=== PATIENT | male | born 1940 | race Caucasian/White ===

== ENCOUNTER 2019-09-11 17:35 | Emergency (ER) | payer MEDICARE, OTHER ==
[~2019-09-11] VITALS: Ht 182.9 cm; Wt 74.0 kg
[2019-09-11 20:23] LABS: CLARITY URINE CLEAR (CLEAR); COLOR URINE YELLOW (YELLOW); KETONES URINE TRACE (NEGATIVE); LEUKOCYTE ESTERASE URINE NEGATIVE (NEGATIVE); NITRITE URINE NEGATIVE (NEGATIVE); OCCULT BLOOD URINE NEGATIVE (NEGATIVE); PROTEIN URINE NEGATIVE (NEGATIVE); SPECIFIC GRAVITY URINE 1.017 (1.005-1.030)
[2019-09-11 21:07] VITALS: BP 133/71
== END 2019-09-11 21:08 | disposition home or self-care (01) ==
LOC: ER 17:50
DX: R33.9 Retention of urine, unspecified (principal); I10 Essential (primary) hypertension; N40.0 Benign prostatic hyperplasia without lower urinary tract symptoms
CPT/HCPCS: 51702; 81003; 99283

== ENCOUNTER 2020-09-21 05:57 | Inpatient (IN) | payer MEDICARE, OTHER ==
[~2020-09-21] VITALS: Ht 182.9 cm; Wt 74.4 kg
[2020-09-21] MEDS ORDERED: ACETAMINOPHEN 325MG TABLET PO ONE (07:30)
[2020-09-21 07:55] LABS: BASOPHILS % 0.6 % (0.0-2.0); EOSINOPHILS % 5.4 % (0.0-5.0); HEMATOCRIT. 36.7 % (42.0-52.0); HEMOGLOBIN. 12.3 g/dL (14.0-18.0); LYMPHOCYTES % 26.4 % (20.0-50.0); MEAN CORPUSCULAR HEMOGLOBIN 30.1 pg (28.0-32.0); MEAN CORPUSCULAR VOLUME 89.7 fL (80.0-94.0); MEAN PLATELET VOLUME 8.3 fl (7.4-10.4); MONOCYTES % 4.4 % (2.0-8.0); NEUTROPHILS % 63.2 % (40.0-76.0); PLATELET 294 x1000/uL (130-400); RED BLOOD CELL COUNT 4.09 mill/uL (4.7-6.1); RED CELL DISTRIBUTION WIDTH 14.1 % (11.6-14.6)
[2020-09-21 08:03] LABS: CHLORIDE 105 mEq/L (98-107)
[2020-09-21] MEDS ORDERED: IPRATROPIUM/ALBUTEROL 0.5-3(2.5)MG/3ML NEB HHN PRN (11:00)
[2020-09-21] MEDS ORDERED: ACETAMINOPHEN 325MG TABLET PO PRN (11:00)
[2020-09-21] MEDS ORDERED: CLONIDINE 0.1MG TABLET PO PRN (11:00)
[2020-09-21] MEDS ORDERED: HYDROCODONE/ACETAMINOPHEN 5/325MG TABLET PO PRN (11:00)
[2020-09-21] MEDS: SODIUM CHLORIDE 0.9% 1,000 ML IV SCH (15:46)
[2020-09-21 16:30] LABS: PROTHROMBIN TIME 11.1 sec (9.6-11.0)
[2020-09-21] MEDS: MORPHINE SULFATE 2 MG/ML CPJ (NOT FOR IM USE) IV PRN (20:16)
[2020-09-21 20:30] VITALS: BP 157/77
[2020-09-21] MEDS ORDERED: MIRTAZAPINE 30MG TABLET PO SCH (21:00)
[2020-09-21] MEDS ORDERED: MIRT-91 MT (22:35)
[2020-09-21 22:36] VITALS: BP 157/77
[2020-09-22] VITALS: BP 115/50
[2020-09-22] MEDS: SODIUM CHLORIDE 0.9% 1,000 ML IV SCH ×2 (00:34→15:36)
[2020-09-22] MEDS: MIRTAZAPINE 15MG TABLET PO SCH ×2 (00:41→20:26)
[2020-09-22 04:00] VITALS: BP 141/66
[2020-09-22 05:10] LABS: CHLORIDE 106 mEq/L (98-107)
[2020-09-22 05:14] LABS: PHOSPHORUS 2.5 mg/dL (2.5-4.9)
[2020-09-22 05:16] LABS: LDL CHOLESTEROL 77 mg/dL (5-100)
[2020-09-22 05:17] LABS: HDL CHOLESTEROL 52 mg/dL (40-59); TOTAL IRON BINDING CAPACITY 237 ug/dL (250-450)
[2020-09-22 05:41] LABS: FERRITIN 115 ng/mL (22-322)
[2020-09-22 06:08] LABS: FOLIC ACID (FOLATE) SERUM >20 ng/mL ng/mL (>5.38)
[2020-09-22 06:19] LABS: BASOPHILS % 0.1 % (0.0-2.0); HEMATOCRIT. 28.9 % (42.0-52.0); HEMOGLOBIN. 9.7 g/dL (14.0-18.0); LYMPHOCYTES % 8.5 % (20.0-50.0); MEAN CORPUSCULAR VOLUME 89.1 fL (80.0-94.0); MEAN PLATELET VOLUME 8.3 fl (7.4-10.4); NEUTROPHILS % 85.4 % (40.0-76.0); PLATELET 286 x1000/uL (130-400); RED BLOOD CELL COUNT 3.24 mill/uL (4.7-6.1); RED CELL DISTRIBUTION WIDTH 14.2 % (11.6-14.6); VITAMIN B12 SERUM 881 pg/mL (211-911)
[2020-09-22 08:00] VITALS: BP 144/57
[2020-09-22] MEDS: ONDANSETRON HCL 4MG/2ML INJ IV PRN (10:08)
[2020-09-22] MEDS ORDERED: *PATIENT'S OWN MEDICATION STORAGE XX SCH (11:30)
[2020-09-22] MEDS ORDERED: LISI40TA13 MT (11:34)
[2020-09-22] MEDS ORDERED: TAMS-11 PO (11:34)
[2020-09-22] MEDS ORDERED: OMEP20TA2 PO (11:34)
[2020-09-22 12:00] VITALS: BP 138/65
[2020-09-22] MEDS: OMEPRAZOLE 20MG CAPSULE EXTENDED RELEASE PO SCH (13:51)
[2020-09-22] MEDS: TAMSULOSIN HCL 0.4MG SR CAPSULE PO SCH (13:51)
[2020-09-22] MEDS: LISINOPRIL 40MG TABLET PO SCH (15:40)
[2020-09-22] MEDS: LORAZEPAM 0.5MG TABLET PO PRN (15:40)
[2020-09-22] MEDS: MORPHINE SULFATE 2 MG/ML CPJ (NOT FOR IM USE) IV PRN (15:41)
[2020-09-22 16:00] VITALS: BP 142/82
[2020-09-22 20:00] VITALS: BP 126/67
[2020-09-23] VITALS: BP 139/52
[2020-09-23 04:00] VITALS: BP 136/58
[2020-09-23] MEDS: SODIUM CHLORIDE 0.9% 1,000 ML IV SCH ×2 (06:29→20:28)
[2020-09-23] MEDS: OMEPRAZOLE 20MG CAPSULE EXTENDED RELEASE PO SCH (06:29)
[2020-09-23 07:19] LABS: BASOPHILS % 0.1 % (0.0-2.0); EOSINOPHILS % 0.2 % (0.0-5.0); HEMOGLOBIN. 8.8 g/dL (14.0-18.0); LYMPHOCYTES % 12.5 % (20.0-50.0); MEAN CORPUSCULAR HEMOGLOBIN 30.4 pg (28.0-32.0); MEAN CORPUSCULAR VOLUME 90.1 fL (80.0-94.0); MEAN PLATELET VOLUME 8.1 fl (7.4-10.4); MONOCYTES % 9.2 % (2.0-8.0); PLATELET 205 x1000/uL (130-400); RED BLOOD CELL COUNT 2.89 mill/uL (4.7-6.1)
[2020-09-23 08:00] VITALS: BP 136/100
[2020-09-23 08:31] LABS: CHLORIDE 106 mEq/L (98-107)
[2020-09-23] MEDS: LISINOPRIL 40MG TABLET PO SCH (09:56)
[2020-09-23] MEDS: TAMSULOSIN HCL 0.4MG SR CAPSULE PO SCH (09:56)
[2020-09-23] MEDS: MORPHINE SULFATE 2 MG/ML CPJ (NOT FOR IM USE) IV PRN ×2 (09:56→18:52)
[2020-09-23 20:00] VITALS: BP 136/62
[2020-09-23] MEDS: MIRTAZAPINE 15MG TABLET PO SCH (20:28)
[2020-09-23] MEDS: ZOLPIDEM TARTRATE 5MG TABLET PO PRN (20:28)
[2020-09-23] MEDS: FAMOTIDINE 20MG TABLET PO SCH (20:28)
[2020-09-24] MEDS: LORAZEPAM 0.5MG TABLET PO PRN (00:42)
[2020-09-24] MEDS: MORPHINE SULFATE 2 MG/ML CPJ (NOT FOR IM USE) IV PRN ×3 (00:42→17:54)
[2020-09-24] MEDS: FAMOTIDINE 20MG TABLET PO SCH ×2 (06:06→20:23)
[2020-09-24 07:07] LABS: BASOPHILS % 0.5 % (0.0-2.0); EOSINOPHILS % 1.8 % (0.0-5.0); HEMATOCRIT. 23.4 % (42.0-52.0); HEMOGLOBIN. 8.1 g/dL (14.0-18.0); LYMPHOCYTES % 15.7 % (20.0-50.0); MEAN CORPUSCULAR HEMOGLOBIN 30.8 pg (28.0-32.0); MONOCYTES % 8.7 % (2.0-8.0); NEUTROPHILS % 73.3 % (40.0-76.0); PLATELET 190 x1000/uL (130-400); RED BLOOD CELL COUNT 2.63 mill/uL (4.7-6.1); RED CELL DISTRIBUTION WIDTH 13.7 % (11.6-14.6)
[2020-09-24 07:25] LABS: CHLORIDE 104 mEq/L (98-107)
[2020-09-24] MEDS: ONDANSETRON HCL 4MG/2ML INJ IV PRN (09:21)
[2020-09-24] MEDS: LISINOPRIL 40MG TABLET PO SCH (09:22)
[2020-09-24] MEDS: TAMSULOSIN HCL 0.4MG SR CAPSULE PO SCH (09:23)
[2020-09-24] MEDS: SODIUM CHLORIDE 0.9% 1,000 ML IV SCH (09:31)
[2020-09-24 16:00] VITALS: BP 138/68
[2020-09-24 20:00] VITALS: BP 134/66
[2020-09-24] MEDS: ZOLPIDEM TARTRATE 5MG TABLET PO PRN (20:23)
[2020-09-24] MEDS: MIRTAZAPINE 15MG TABLET PO SCH (20:23)
[2020-09-25] MEDS: SODIUM CHLORIDE 0.9% 1,000 ML IV SCH ×3 (00:48→21:28)
[2020-09-25 04:00] VITALS: BP 126/55
[2020-09-25] MEDS: MORPHINE SULFATE 2 MG/ML CPJ (NOT FOR IM USE) IV PRN (05:47)
[2020-09-25] MEDS: FAMOTIDINE 20MG TABLET PO SCH ×2 (06:15→21:08)
[2020-09-25] MEDS ORDERED: LIDOCAINE 1%/EPI 1:200,000 10 ML VIAL IJ ONE (06:54)
[2020-09-25] MEDS ORDERED: BACITRACIN 50,000 UNITS/VIAL ONE ×2 (06:54→09:12)
[2020-09-25] MEDS ORDERED: VANCOMYCIN HCL 1 GM/VIAL ONE (07:08)
[2020-09-25] MEDS ORDERED: BUPIVACAINE HCL/PF 0.5% (5MG/ML) 10ML ONE ×2 (07:08→09:02)
[2020-09-25 07:18] LABS: BASOPHILS % 0.6 % (0.0-2.0); EOSINOPHILS % 4.7 % (0.0-5.0); HEMATOCRIT. 23.7 % (42.0-52.0); HEMOGLOBIN. 8.2 g/dL (14.0-18.0); LYMPHOCYTES % 18.9 % (20.0-50.0); MEAN CORPUSCULAR HEMOGLOBIN 30.8 pg (28.0-32.0); MEAN CORPUSCULAR VOLUME 89.2 fL (80.0-94.0); MEAN PLATELET VOLUME 7.7 fl (7.4-10.4); MONOCYTES % 8.5 % (2.0-8.0); NEUTROPHILS % 67.3 % (40.0-76.0); PLATELET 215 x1000/uL (130-400); RED BLOOD CELL COUNT 2.66 mill/uL (4.7-6.1); RED CELL DISTRIBUTION WIDTH 13.5 % (11.6-14.6)
[2020-09-25 07:21] LABS: CHLORIDE 102 mEq/L (98-107)
[2020-09-25] MEDS ORDERED: ROPIVACAINE HCL 10MG/ML 20 ML VIAL EPI ONE (07:21)
[2020-09-25] MEDS ORDERED: FENTANYL CITRATE/PF 50MCG/ML 2ML VIAL ONE ×3 (07:34→09:11)
[2020-09-25] MEDS ORDERED: PROPOFOL 200MG/20ML VIAL IV ONE (07:34)
[2020-09-25] MEDS ORDERED: NEOSTIGMINE METHYLSULFATE 1MG/ML 10 ML VIAL ONE (07:34)
[2020-09-25] MEDS ORDERED: SODIUM CHLORIDE 0.9% 10ML VIAL ONE (07:34)
[2020-09-25] MEDS ORDERED: SUCCINYLCHOLINE CHLORIDE 200MG/10ML IV ONE (07:34)
[2020-09-25] MEDS ORDERED: ONDANSETRON HCL 4MG/2ML INJ ONE (07:34)
[2020-09-25] MEDS ORDERED: CEFAZOLIN SODIUM 1000MG/VIAL ONE (07:34)
[2020-09-25] MEDS ORDERED: PHENYLEPHRINE HCL 10 MG/ML 1ML (IV VIAL) IV ONE (07:34)
[2020-09-25] MEDS ORDERED: MIDAZOLAM HCL 2 MG/2 ML VIAL ONE (07:34)
[2020-09-25] MEDS ORDERED: ROCURONIUM BROMIDE 10MG/ML VIAL 5ML IV ONE (07:34)
[2020-09-25] MEDS ORDERED: EPHEDRINE SULFATE 50MG/ML VIAL ONE (07:34)
[2020-09-25] MEDS ORDERED: GLYCOPYRROLATE 0.2 MG/ML 2ML VIAL ONE (07:34)
[2020-09-25] MEDS ORDERED: METOCLOPRAMIDE HCL 10MG/2ML VIAL ONE (07:34)
[2020-09-25] MEDS: LISINOPRIL 40MG TABLET PO SCH (08:17)
[2020-09-25] MEDS: TAMSULOSIN HCL 0.4MG SR CAPSULE PO SCH ×2 (08:17→14:23)
[2020-09-25] MEDS ORDERED: BUPIVACAINE HCL 0.5% (5MG/ML) 50ML ONE (09:01)
[2020-09-25] MEDS ORDERED: HYDROMORPHONE HCL/PF 2MG/ML (OR) ONE (09:49)
[2020-09-25] MEDS ORDERED: MORPHINE SULFATE 2 MG/ML CPJ (NOT FOR IM USE) IV PRN (10:00)
[2020-09-25] MEDS ORDERED: MEPERIDINE HCL/PF 25MG/ML CPJ IV PRN ×2 (10:00)
[2020-09-25] MEDS ORDERED: ONDANSETRON HCL 4MG/2ML INJ IV PRN (10:00)
[2020-09-25] MEDS ORDERED: SODIUM CHLORIDE 0.9% 1,000 ML IV ONE (10:00)
[2020-09-25] MEDS ORDERED: HYDROMORPHONE HCL/PF 2MG/ML CPJ IV PRN (10:00)
[2020-09-25] MEDS ORDERED: DIPHENHYDRAMINE INJ IV PRN (11:30)
[2020-09-25] MEDS ORDERED: NALOXONE INJ IV PRN (11:30)
[2020-09-25] MEDS ORDERED: ONDANSETRON INJ IV PRN (11:30)
[2020-09-25] MEDS ORDERED: HYDROMORPHONE PCA 10MG/50ML IV PRN (11:30)
[2020-09-25] MEDS ORDERED: CEFAZOLIN 1000MG PREMIX 50 ML IV SCH (14:00)
[2020-09-25 16:00] VITALS: BP 136/67
[2020-09-25] MEDS ORDERED: POTASSIUM CHLORIDE 20MEQ TABLET SR PO NR (19:30)
[2020-09-25 20:00] VITALS: BP 148/70
[2020-09-25] MEDS: MIRTAZAPINE 15MG TABLET PO SCH (21:08)
[2020-09-25] MEDS: ZOLPIDEM TARTRATE 5MG TABLET PO PRN (21:08)
[2020-09-25] MEDS: CEFAZOLIN 1000MG PREMIX 50 ML IV SCH (21:13)
[2020-09-26] VITALS: BP 156/87
[2020-09-26 04:00] VITALS: BP 153/71
[2020-09-26] MEDS: FAMOTIDINE 20MG TABLET PO SCH ×2 (05:50→21:02)
[2020-09-26] MEDS: CEFAZOLIN 1000MG PREMIX 50 ML IV SCH ×3 (05:50→21:43)
[2020-09-26 07:11] LABS: BASOPHILS % 0.4 % (0.0-2.0); HEMATOCRIT. 25.9 % (42.0-52.0); HEMOGLOBIN. 8.6 g/dL (14.0-18.0); LYMPHOCYTES % 9.9 % (20.0-50.0); MEAN PLATELET VOLUME 7.7 fl (7.4-10.4); MONOCYTES % 7.7 % (2.0-8.0); PLATELET 290 x1000/uL (130-400); RED BLOOD CELL COUNT 2.88 mill/uL (4.7-6.1); RED CELL DISTRIBUTION WIDTH 13.4 % (11.6-14.6)
[2020-09-26 08:00] VITALS: BP 154/80
[2020-09-26] MEDS: TAMSULOSIN HCL 0.4MG SR CAPSULE PO SCH (09:11)
[2020-09-26] MEDS: DOCUSATE SODIUM 100MG CAPSULE PO PRN ×2 (09:11→17:40)
[2020-09-26] MEDS: LISINOPRIL 40MG TABLET PO SCH (09:11)
[2020-09-26] MEDS: ENOXAPARIN 40MG/0.4ML SYR SUBCUT SCH (10:25)
[2020-09-26 12:00] VITALS: BP 143/70
[2020-09-26] MEDS ORDERED: LACTATED RINGERS 1,000 ML IV ONE (12:00)
[2020-09-26] MEDS ORDERED: MORPHINE SULFATE 2 MG/ML CPJ (NOT FOR IM USE) IV PRN (13:15)
[2020-09-26] MEDS: HYDROCODONE/ACETAMINOPHEN 5/325MG TABLET PO PRN ×2 (13:19→21:03)
[2020-09-26 16:00] VITALS: BP 134/71
[2020-09-26 20:00] VITALS: BP 134/67
[2020-09-26] MEDS: MIRTAZAPINE 15MG TABLET PO SCH (21:02)
[2020-09-26] MEDS: SODIUM CHLORIDE 0.9% 1,000 ML IV SCH (21:04)
[2020-09-27] VITALS: BP 134/60
[2020-09-27 04:00] VITALS: BP 145/76
[2020-09-27] MEDS: CEFAZOLIN 1000MG PREMIX 50 ML IV SCH (05:13)
[2020-09-27] MEDS: FAMOTIDINE 20MG TABLET PO SCH ×2 (06:23→20:53)
[2020-09-27 08:00] VITALS: BP 133/71
[2020-09-27] MEDS: TAMSULOSIN HCL 0.4MG SR CAPSULE PO SCH (08:26)
[2020-09-27] MEDS: ENOXAPARIN 40MG/0.4ML SYR SUBCUT SCH (08:26)
[2020-09-27] MEDS: LISINOPRIL 40MG TABLET PO SCH (08:27)
[2020-09-27] MEDS: DOCUSATE SODIUM 100MG CAPSULE PO PRN (08:27)
[2020-09-27] MEDS: SODIUM CHLORIDE 0.9% 1,000 ML IV SCH ×2 (10:10→23:30)
[2020-09-27] MEDS: HYDROCODONE/ACETAMINOPHEN 5/325MG TABLET PO PRN (10:14)
[2020-09-27] MEDS ORDERED: POLYETHYLENE GLYCOL 3350 (17GM) 1 DOSE PACK PO NR (11:30)
[2020-09-27 12:00] VITALS: BP 122/54
[2020-09-27] MEDS ORDERED: POTASSIUM CHLORIDE 20MEQ TABLET SR PO SCH (14:00)
[2020-09-27] MEDS ORDERED: BISACODYL 10MG SUPP PR NR (18:06)
[2020-09-27 20:00] VITALS: BP 127/58
[2020-09-27] MEDS: ZOLPIDEM TARTRATE 5MG TABLET PO PRN ×2 (20:52)
[2020-09-27] MEDS: MIRTAZAPINE 15MG TABLET PO SCH (20:53)
[2020-09-28] VITALS: BP 146/74
[2020-09-28 04:00] VITALS: BP 142/56
[2020-09-28 06:09] LABS: BASOPHILS % 0.4 % (0.0-2.0); EOSINOPHILS % 2.2 % (0.0-5.0); HEMATOCRIT. 21.8 % (42.0-52.0); HEMOGLOBIN. 7.5 g/dL (14.0-18.0); LYMPHOCYTES % 15.6 % (20.0-50.0); MEAN CORPUSCULAR HEMOGLOBIN 30.6 pg (28.0-32.0); MEAN PLATELET VOLUME 7.5 fl (7.4-10.4); MONOCYTES % 8.7 % (2.0-8.0); NEUTROPHILS % 73.1 % (40.0-76.0); PLATELET 324 x1000/uL (130-400); RED BLOOD CELL COUNT 2.45 mill/uL (4.7-6.1); RED CELL DISTRIBUTION WIDTH 13.4 % (11.6-14.6)
[2020-09-28] MEDS: FAMOTIDINE 20MG TABLET PO SCH ×2 (06:31→21:20)
[2020-09-28 07:13] LABS: CHLORIDE 105 mEq/L (98-107)
[2020-09-28 08:00] VITALS: BP 138/63
[2020-09-28] MEDS: ENOXAPARIN 40MG/0.4ML SYR SUBCUT SCH (08:46)
[2020-09-28] MEDS: TAMSULOSIN HCL 0.4MG SR CAPSULE PO SCH (08:46)
[2020-09-28] MEDS: LISINOPRIL 40MG TABLET PO SCH (08:46)
[2020-09-28] MEDS: HYDROCODONE/ACETAMINOPHEN 5/325MG TABLET PO PRN ×2 (08:49→14:56)
[2020-09-28 12:00] VITALS: BP 128/60
[2020-09-28] MEDS: SODIUM CHLORIDE 0.9% 1,000 ML IV SCH (14:57)
[2020-09-28 16:00] VITALS: BP 97/61
[2020-09-28 20:00] VITALS: BP 138/62
[2020-09-28] MEDS: MIRTAZAPINE 15MG TABLET PO SCH (21:20)
[2020-09-29] VITALS: BP 154/67
[2020-09-29 04:00] VITALS: BP 153/73
[2020-09-29] MEDS: SODIUM CHLORIDE 0.9% 1,000 ML IV SCH (06:12)
[2020-09-29 07:01] LABS: BASOPHILS % 0.5 % (0.0-2.0); EOSINOPHILS % 3.6 % (0.0-5.0); HEMATOCRIT. 21.9 % (42.0-52.0); HEMOGLOBIN. 7.5 g/dL (14.0-18.0); LYMPHOCYTES % 13.4 % (20.0-50.0); MEAN CORPUSCULAR HEMOGLOBIN 30.4 pg (28.0-32.0); MEAN CORPUSCULAR VOLUME 88.9 fL (80.0-94.0); MEAN PLATELET VOLUME 6.8 fl (7.4-10.4); MONOCYTES % 7.2 % (2.0-8.0); NEUTROPHILS % 75.3 % (40.0-76.0); PLATELET 395 x1000/uL (130-400); RED BLOOD CELL COUNT 2.47 mill/uL (4.7-6.1); RED CELL DISTRIBUTION WIDTH 13.8 % (11.6-14.6)
[2020-09-29 07:19] LABS: CHLORIDE 103 mEq/L (98-107)
[2020-09-29 08:00] VITALS: BP 149/65
[2020-09-29] MEDS: LISINOPRIL 40MG TABLET PO SCH (09:43)
[2020-09-29] MEDS: FAMOTIDINE 20MG TABLET PO SCH ×2 (09:43→22:28)
[2020-09-29] MEDS: TAMSULOSIN HCL 0.4MG SR CAPSULE PO SCH (09:43)
[2020-09-29] MEDS: ENOXAPARIN 40MG/0.4ML SYR SUBCUT SCH (09:44)
[2020-09-29 12:00] VITALS: BP 125/60
[2020-09-29] MEDS: ACETAMINOPHEN 325MG TABLET PO PRN ×2 (13:37→22:28)
[2020-09-29 16:00] VITALS: BP 147/69
[2020-09-29 20:00] VITALS: BP 143/79
[2020-09-29] MEDS: MIRTAZAPINE 15MG TABLET PO SCH (22:28)
[2020-09-29] MEDS: ZOLPIDEM TARTRATE 5MG TABLET PO PRN (22:38)
[2020-09-30] VITALS: BP 139/73
[2020-09-30] MEDS: FAMOTIDINE 20MG TABLET PO SCH ×2 (06:30→20:14)
[2020-09-30 08:00] VITALS: BP 131/65
[2020-09-30] MEDS: SODIUM CHLORIDE 0.9% 1,000 ML IV SCH ×2 (08:54→22:57)
[2020-09-30] MEDS: LISINOPRIL 40MG TABLET PO SCH (09:46)
[2020-09-30] MEDS: TAMSULOSIN HCL 0.4MG SR CAPSULE PO SCH (09:46)
[2020-09-30] MEDS: ACETAMINOPHEN 325MG TABLET PO PRN ×2 (09:46→20:15)
[2020-09-30] MEDS: ENOXAPARIN 40MG/0.4ML SYR SUBCUT SCH (09:47)
[2020-09-30 12:00] VITALS: BP 132/78
[2020-09-30] MEDS ORDERED: HYDR-4001 MT (13:53)
[2020-09-30] MEDS ORDERED: ONDA4TAB11 PO (13:53)
[2020-09-30 16:00] VITALS: BP 138/48
[2020-09-30 20:00] VITALS: BP 127/55
[2020-09-30] MEDS: MIRTAZAPINE 15MG TABLET PO SCH (23:07)
[2020-09-30] MEDS: ZOLPIDEM TARTRATE 5MG TABLET PO PRN (23:10)
[2020-10-01] MEDS: ACETAMINOPHEN 325MG TABLET PO PRN ×2 (00:58→09:33)
[2020-10-01] MEDS: FAMOTIDINE 20MG TABLET PO SCH (07:11)
[2020-10-01 08:00] VITALS: BP 130/69
[2020-10-01] MEDS: TAMSULOSIN HCL 0.4MG SR CAPSULE PO SCH (08:49)
[2020-10-01] MEDS: LISINOPRIL 40MG TABLET PO SCH (08:49)
[2020-10-01] MEDS: ENOXAPARIN 40MG/0.4ML SYR SUBCUT SCH (08:50)
[2020-10-01 10:40] VITALS: BP_SYST 124; BP_SYST 130; BP_DIAS 62; BP_DIAS 69
[2020-10-01 12:00] VITALS: BP 134/62
== END 2020-10-01 14:34 | disposition home health service (06) | DRG 488 ==
LOC: ER 05:57 → 6EST 10:37 → ENRESERV 16:31 → EDBEDREQSVC 17:27 → ENRESERV 19:40
PROVIDERS: ADMIT Internal Medicine; ATTEND Internal Medicine
PROC: 2W3RX1Z Immobilization of Left Lower Leg using Splint (ICD-10-PCS; 2020-09-21)
PROC: 0QSH04Z Reposition Left Tibia with Internal Fixation Device, Open Approach (ICD-10-PCS; principal; 2020-09-25)
PROC: 0SQD0ZZ Repair Left Knee Joint, Open Approach (ICD-10-PCS; 2020-09-25)
DX: S82.142A Displaced bicondylar fracture of left tibia, initial encounter for closed fracture (principal); S72.402A Unspecified fracture of lower end of left femur, initial encounter for closed fracture; S82.002A Unspecified fracture of left patella, initial encounter for closed fracture; S83.272A Complex tear of lateral meniscus, current injury, left knee, initial encounter; W06.XXXA Fall from bed, initial encounter; D64.9 Anemia, unspecified; N40.1 Benign prostatic hyperplasia with lower urinary tract symptoms; R33.8 Other retention of urine; I10 Essential (primary) hypertension; I45.10 Unspecified right bundle-branch block; E05.00 Thyrotoxicosis with diffuse goiter without thyrotoxic crisis or storm; Z20.822 Contact with and (suspected) exposure to COVID-19; S09.90XA Unspecified injury of head, initial encounter; Y93.89 Activity, other specified; Y92.89 Other specified places as the place of occurrence of the external cause; Y99.8 Other external cause status
CPT/HCPCS: 36415; 71045; 73552; 73560; 73590; 73600; 73700; 76000; 80048; 80053; 80061; 82607; 82728; 82746; 83036; 83540; 83550; 83735; 84100; 84443; 85025; 86850; 86900; 86920; 87426; 93005; 97116; 97162; 97166; 97530; 97535; 99285; C1713; J0330; J0690; J1170; J1650; J2250; J2270; J2370; J2405; J2704; J2710; J2765; J2795; J3010; J3370; J3490; A4315